=== PATIENT | female | born 1945 | race Caucasian/White ===

== ENCOUNTER 2016-05-16 15:41 | Inpatient (IN) | payer MEDICARE, BC ==
[~2016-05-16] VITALS: Ht 165.1 cm; Wt 80.8 kg
[2016-05-16] MEDS ORDERED: FLUO10CA7 PO (16:13)
[2016-05-16] MEDS ORDERED: FENTANYL PF 100 MCG/2ML ONE (16:15)
[2016-05-16] MEDS ORDERED: ONDANSETRON 2MG/ML, 2ML ONE ×2 (16:19→18:59)
[2016-05-16] MEDS ORDERED: ONDANSETRON 2MG/ML, 2ML IVPush ONE (16:30)
[2016-05-16] MEDS ORDERED: SODIUM CHLORIDE FLUSH 10ML SYR IVF ONE (16:30)
[2016-05-16] MEDS ORDERED: FENTANYL PF 100 MCG/2ML IVPush PRN (16:30)
[2016-05-16] MEDS ORDERED: SODIUM CHLORIDE 0.9% 1,000ML IVBOLUS ONE (16:30)
[2016-05-16] MEDS ORDERED: HYDROmorphone 1 MG/ML, 1ML ONE ×3 (16:51→20:12)
[2016-05-16] MEDS ORDERED: HYDROmorphone 1 MG/ML, 1ML IV ONE (17:00)
[2016-05-16] MEDS ORDERED: PLEASE ENTER ALLERGIES MC SCH ×2 (17:00)
[2016-05-16 17:14] LABS: BLOOD UREA NITROGEN 15 mg/dL (7-18)
[2016-05-16 17:17] LABS: ASPARTATE AMINO TRANSFERASE 25 U/L (15-37)
[2016-05-16] MEDS ORDERED: PIPERACILLIN/TAZO/PMX 3.375GM 50 ML ONE (18:30)
[2016-05-16] MEDS ORDERED: HYDROmorphone 1 MG/ML, 1ML IV PRN ×2 (18:30→20:00)
[2016-05-16] MEDS ORDERED: PIPERACILLIN/TAZO/PMX 3.375GM 50 ML IV ONE (18:30)
[2016-05-16] MEDS ORDERED: FENTANYL PF 250 MCG/5ML ONE (18:42)
[2016-05-16] MEDS ORDERED: MIDAZOLAM 1 MG/ML, 2ML ONE (18:42)
[2016-05-16] MEDS ORDERED: BUPIVACAINE/PF-EPI 0.25% 1:200K ONE (18:52)
[2016-05-16] MEDS ORDERED: PROPOFOL 10 MG/ML, 20ML ONE (18:59)
[2016-05-16] MEDS ORDERED: GLYCOPYRROLATE 0.2MG/1ML ONE (18:59)
[2016-05-16] MEDS ORDERED: ROCURONIUM 10 MG/ML ONE (18:59)
[2016-05-16] MEDS ORDERED: SUCCINYLCHOLINE 20 MG/ML, 10ML ONE (18:59)
[2016-05-16] MEDS ORDERED: DEXAMETHASONE 4 MG/ML, 5ML ONE (18:59)
[2016-05-16] MEDS ORDERED: NEOSTIGMINE 1 MG/ML, 10ML ONE (18:59)
[2016-05-16] MEDS ORDERED: PHENYLEPHRINE 10 MG/ML ONE (18:59)
[2016-05-16] MEDS ORDERED: ALBUTEROL/IPRATROPIUM 2.5MG/0.5MG, 3 ML NPPB PRN (20:00)
[2016-05-16] MEDS ORDERED: FENTANYL PF 100 MCG/2ML IV PRN (20:00)
[2016-05-16] MEDS ORDERED: EPHEDRINE 50 MG/ML, 1ML IVPush PRN (20:00)
[2016-05-16] MEDS ORDERED: LABETALOL 5MG/ML, 20ML IV PRN (20:00)
[2016-05-16] MEDS ORDERED: PROMETHAZINE 25 MG/ML, 1ML IV PRN (20:00)
[2016-05-16] MEDS ORDERED: MIDAZOLAM 1 MG/ML, 2ML IV PRN (20:00)
[2016-05-16] MEDS ORDERED: ONDANSETRON 2MG/ML, 2ML IVPush PRN ×2 (20:00→20:30)
[2016-05-16] MEDS ORDERED: MEPERIDINE/PF 25MG/0.5ML IVPush PRN (20:00)
[2016-05-16] MEDS ORDERED: hydrALAzine 20 MG/ML, 1ML IV PRN ×2 (20:00→20:30)
[2016-05-16] MEDS ORDERED: ACETAMINOPHEN 650 MG SUPP PR PRN (20:30)
[2016-05-16] MEDS: CEFOTETAN PMX 1GM/50ML 50 ML IVPB SCH (22:34)
[2016-05-16] MEDS: POTASSIUM CHLORIDE 20 MEQ in D5%-0.45% NACL 1,000 ML IV SCH (23:30)
[2016-05-16] MEDS: PANTOPRAZOLE 40 MG IV IVPush SCH (23:38)
[2016-05-16] MEDS: FLUCONAZOLE 400 MG/200 ML 200 ML IV SCH (23:38)
[2016-05-16 23:48] VITALS: BP 106/72
[2016-05-17 02:40] VITALS: BP 119/75
[2016-05-17] MEDS: MORPHINE SULFATE 4 MG/ML, 1ML IVPush PRN ×4 (05:52→20:55)
[2016-05-17 05:55] LABS: HEMOGLOBIN 14.9 g/dL (11.7-16.4)
[2016-05-17 06:05] LABS: BLOOD UREA NITROGEN 16 mg/dL (7-18)
[2016-05-17 06:28] LABS: DIFF TOTAL CELLS COUNTED 100 CELL DIFF
[2016-05-17 06:32] LABS: VERIFY COUNTS? YES
[2016-05-17 06:33] LABS: LARGE PLATELETS 1+
[2016-05-17 07:20] VITALS: BP 104/67
[2016-05-17] MEDS: POTASSIUM CHLORIDE 20 MEQ in D5%-0.45% NACL 1,000 ML IV SCH ×3 (07:35→18:50)
[2016-05-17] MEDS ORDERED: metroNIDAZOLE 5 MG/ML INJ 500 MG in SYRINGE 1 EA IV SCH (09:00)
[2016-05-17] MEDS: METRONIDAZOLE PMX 500MG/100ML 100 ML IV SCH ×2 (09:14→17:42)
[2016-05-17] MEDS: ENOXAPARIN 40 MG/0.4 ML SQ SCH (09:15)
[2016-05-17] MEDS: CEFOTETAN PMX 1GM/50ML 50 ML IVPB SCH ×2 (10:53→23:10)
[2016-05-17] MEDS: PANTOPRAZOLE 40 MG IV IVPush SCH ×2 (10:53→23:10)
[2016-05-17 13:20] VITALS: BP 101/66
[2016-05-17 19:18] VITALS: BP 114/62
[2016-05-17] MEDS: FLUCONAZOLE 400 MG/200 ML 200 ML IV SCH (20:52)
[2016-05-18] MEDS: METRONIDAZOLE PMX 500MG/100ML 100 ML IV SCH ×3 (01:01→17:43)
[2016-05-18] MEDS: MORPHINE SULFATE 4 MG/ML, 1ML IVPush PRN ×6 (01:15→23:40)
[2016-05-18 01:19] VITALS: BP 144/81
[2016-05-18 07:25] VITALS: BP 153/86
[2016-05-18] MEDS: ENOXAPARIN 40 MG/0.4 ML SQ SCH (09:05)
[2016-05-18] MEDS: CEFOTETAN PMX 1GM/50ML 50 ML IVPB SCH ×2 (10:25→23:36)
[2016-05-18] MEDS: PANTOPRAZOLE 40 MG IV IVPush SCH ×2 (11:37→23:40)
[2016-05-18] MEDS: POTASSIUM CHLORIDE 20 MEQ in D5%-0.45% NACL 1,000 ML IV SCH ×2 (11:37→21:21)
[2016-05-18 13:16] VITALS: BP 157/85
[2016-05-18 20:37] VITALS: BP 149/80
[2016-05-18] MEDS: FLUCONAZOLE 400 MG/200 ML 200 ML IV SCH (21:21)
[2016-05-19 01:43] VITALS: BP 105/69
[2016-05-19] MEDS: METRONIDAZOLE PMX 500MG/100ML 100 ML IV SCH ×3 (02:03→17:40)
[2016-05-19] MEDS: POTASSIUM CHLORIDE 20 MEQ in D5%-0.45% NACL 1,000 ML IV SCH ×2 (06:08→17:39)
[2016-05-19] MEDS: MORPHINE SULFATE 4 MG/ML, 1ML IVPush PRN ×3 (06:09→21:02)
[2016-05-19 07:30] VITALS: BP 134/75
[2016-05-19] MEDS: ENOXAPARIN 40 MG/0.4 ML SQ SCH (09:39)
[2016-05-19] MEDS: CEFOTETAN PMX 1GM/50ML 50 ML IVPB SCH (12:02)
[2016-05-19] MEDS: PANTOPRAZOLE 40 MG IV IVPush SCH ×2 (12:03→23:59)
[2016-05-19] MEDS ORDERED: OMNIPAQUE 350 MG/ML, 150 ML BOTTLE ONE (14:29)
[2016-05-19 14:33] VITALS: BP 139/85
[2016-05-19 19:00] VITALS: BP 140/84
[2016-05-19] MEDS: FLUCONAZOLE 400 MG/200 ML 200 ML IV SCH (21:59)
[2016-05-20] MEDS: CEFOTETAN PMX 1GM/50ML 50 ML IVPB SCH ×3 (00:07→23:44)
[2016-05-20] MEDS: METRONIDAZOLE PMX 500MG/100ML 100 ML IV SCH ×3 (02:43→17:42)
[2016-05-20] MEDS: POTASSIUM CHLORIDE 20 MEQ in D5%-0.45% NACL 1,000 ML IV SCH ×3 (02:43→21:40)
[2016-05-20 02:50] VITALS: BP 137/83
[2016-05-20 07:19] VITALS: BP 159/94
[2016-05-20] MEDS: ENOXAPARIN 40 MG/0.4 ML SQ SCH (08:27)
[2016-05-20] MEDS: PANTOPRAZOLE 40 MG IV IVPush SCH ×2 (11:53→23:44)
[2016-05-20 14:44] VITALS: BP 137/86
[2016-05-20 20:00] VITALS: BP 159/92
[2016-05-20] MEDS: MORPHINE SULFATE 4 MG/ML, 1ML IVPush PRN (21:19)
[2016-05-20] MEDS: FLUCONAZOLE 400 MG/200 ML 200 ML IV SCH (21:20)
[2016-05-21] MEDS: METRONIDAZOLE PMX 500MG/100ML 100 ML IV SCH ×3 (02:09→18:14)
[2016-05-21 02:54] VITALS: BP 152/88
[2016-05-21] MEDS: POTASSIUM CHLORIDE 20 MEQ in D5%-0.45% NACL 1,000 ML IV SCH (04:09)
[2016-05-21 07:20] VITALS: BP 150/85
[2016-05-21] MEDS: ENOXAPARIN 40 MG/0.4 ML SQ SCH (09:26)
[2016-05-21] MEDS: PANTOPRAZOLE 40 MG IV IVPush SCH ×2 (11:29→23:44)
[2016-05-21] MEDS: CEFOTETAN PMX 1GM/50ML 50 ML IVPB SCH ×2 (11:29→23:44)
[2016-05-21 13:32] VITALS: BP 136/81
[2016-05-21] MEDS: HYDROcodone/APAP 5/325 TABLET PO PRN ×2 (15:30→21:27)
[2016-05-21 19:49] VITALS: BP 149/91
[2016-05-21 20:27] LABS: HELICOBACTER PYLORI IGG 4.7 U/mL (0.0-0.8); HELICOBACTER PYLORI IGM <9.0 units (0.0-8.9)
[2016-05-21] MEDS: FLUCONAZOLE 400 MG/200 ML 200 ML IV SCH (21:32)
[2016-05-22] MEDS: METRONIDAZOLE PMX 500MG/100ML 100 ML IV SCH ×3 (02:37→18:03)
[2016-05-22 03:16] VITALS: BP 153/93
[2016-05-22 05:04] LABS: HEMOGLOBIN 13.6 g/dL (11.7-16.4)
[2016-05-22 07:04] VITALS: BP 148/89
[2016-05-22] MEDS: ENOXAPARIN 40 MG/0.4 ML SQ SCH (10:35)
[2016-05-22] MEDS: HYDROcodone/APAP 5/325 TABLET PO PRN ×2 (10:39→21:00)
[2016-05-22] MEDS: CEFOTETAN PMX 1GM/50ML 50 ML IVPB SCH (12:18)
[2016-05-22] MEDS: PANTOPRAZOLE 40 MG IV IVPush SCH (12:22)
[2016-05-22 14:00] VITALS: BP 135/79
[2016-05-22 18:54] VITALS: BP 138/80
[2016-05-22] MEDS: PANTOPROZOLE 40MG TABLET PO SCH (22:32)
[2016-05-22] MEDS: FLUCONAZOLE 400 MG/200 ML 200 ML IV SCH (22:34)
[2016-05-23] MEDS: CEFOTETAN PMX 1GM/50ML 50 ML IVPB SCH ×2 (00:45→12:04)
[2016-05-23 00:53] VITALS: BP 142/83
[2016-05-23] MEDS: METRONIDAZOLE PMX 500MG/100ML 100 ML IV SCH ×2 (02:39→10:57)
[2016-05-23 07:09] VITALS: BP 148/83
[2016-05-23] MEDS: PANTOPROZOLE 40MG TABLET PO SCH (07:43)
[2016-05-23] MEDS: ENOXAPARIN 40 MG/0.4 ML SQ SCH (07:43)
[2016-05-23 13:09] VITALS: BP 133/81
[2016-05-23] MEDS ORDERED: HYDR-883 PO (14:16)
[2016-05-23] MEDS ORDERED: OMEP-110 PO (14:17)
[2016-05-23] MEDS ORDERED: CLAR500T3 PO (14:18)
[2016-05-23] MEDS ORDERED: METR500T4 PO (14:19)
== END 2016-05-23 14:35 | disposition home or self-care (01) | DRG 326 ==
LOC: ED 18:13 → EDIP 18:25 → 4NOR 21:38 → DCLOUNGE 05-23 14:12
PROVIDERS: ADMIT Surgery; ATTEND Surgery
PROC: 0T9B70Z Drainage of Bladder with Drainage Device, Via Natural or Artificial Opening (ICD-10-PCS; 2016-05-16)
PROC: 0DQ70ZZ Repair Stomach, Pylorus, Open Approach (ICD-10-PCS; 2016-05-16)
PROC: 0DQ90ZZ Repair Duodenum, Open Approach (ICD-10-PCS; principal; 2016-05-16 18:45)
DX: K26.5 Chronic or unspecified duodenal ulcer with perforation (principal); K85.90 Acute pancreatitis without necrosis or infection, unspecified; K25.5 Chronic or unspecified gastric ulcer with perforation; F32.9 Major depressive disorder, single episode, unspecified; F17.210 Nicotine dependence, cigarettes, uncomplicated; I95.9 Hypotension, unspecified
CPT/HCPCS: 36415; 71010; 74177; 74241; 80048; 80053; 81001; 82040; 83605; 83690; 85025; 85610; 86677; 86850; 86900; 87040; 87086; 93005; 96374; 96375; J1100; J1170; J1450; J1650; J2250; J2405; J2704; J2710; J3010; J3480; J3490; Q9967; C9113; J0330; J2370; J7030; S0074